=== PATIENT | male | born 1990 | race Caucasian/White ===

== ENCOUNTER 2019-03-12 16:33 | Emergency (ER) | payer SELFPAY ==
--- NOTE | 2019-03-12 16:43 | UC ---
Psychiatric Complaint HPI - HPI Summary HPI Summary: On Thu has lost 3 hrs of his memory where he can't recall what happened. He was at work and woke up behind work in alley. denies any head injuries. he does not remember if his co workers said anything. He has since been home and drinking less alcohol, usually has 5 a night. increased anxiety and feeling of doom . also threw up once today. denies drug use. - History Of Current Complaint Chief Complaint: UCAlteredMentalStatus Stated Complaint: ANXIOUS Time Seen by Provider: 03/12/19 16:42 Hx Obtained From: Patient Onset/Duration: Sudden Onset Character: Fearful, Anxious Aggravating Factor(s): Alcohol Use Alleviating Factor(s): Nothing Associated Signs And Symptoms: Confused - Allergies/Home Medications Allergies/Adverse Reactions: Allergies Allergy/AdvReac Type Severity Reaction Status Date / Time No Known Allergies Allergy Verified 03/12/19 16:47 PMH/Surg Hx/FS Hx/Imm Hx Previously Healthy: Yes Psychological History: Anxiety - Surgical History Surgical History: Unable to Obtain/Confirm - Family History Known Family History: Positive: Other - RECTAL CANCER/MOTHER Review of Systems All Other Systems Reviewed And Are Negative: Yes Constitutional: Negative: Fever Respiratory: Positive: Negative Cardiovascular: Positive: Palpitations Gastrointestinal: Positive: Vomiting - x1 today. Negative: Abdominal Pain, Diarrhea, Nausea Genitourinary: Negative: Dysuria Neurological: Positive: Other - memory lapse. Negative: Headache Psychological: Positive: Anxious. Negative: Depressed Physical Exam Triage Information Reviewed: Yes Appearance: Well-Appearing Vital Signs Reviewed: Yes Respiratory Exam: Normal Cardiovascular Exam: Normal Neurological: Positive: Alert Psychological: Positive: Other: - visibly anxious/tremors/blinking tic Skin: Negative: Rashes Psych Complaint Course/Dx - Course Course Of Treatment: Pt. w/ untreated anxiety presenting with transient global amnesia approx 3 hrs 4 days ago at work. At approx 1 pm he was drinking a beer and that was his last snap shot of memory. Found himself behind his job site on the ground. He doens 't have anyother injuries. He cannot recall what happened and when he awoke he felt shaken and increased feeling of doom, anxiety. His co workers did not ask where he had been which is strange. His short term memory has also worsened. He came in today due to increased anxiety. he denies drug ingestion. UDS: pending. EKG:unremarkable. Glucose finger stick: nl. He does admit to having anxiety and having been on an SSRI in the past. He does drink 5 etoh a night but has since decreased a bit. My immediate concern is if pt. had his drink tampered w/. There is also a concern for cerebral issue for which he would need CT for. After consult w/ MD it was decided he would be better served going to ED for curiel eval, I offered ambulance. Pt. has declined and they will be driving over. He is stable but clearly anxious and we gave hydroxyzine for now. vitals have improved and no longer tachycardic upon discharge w/ pulse of 77. BP remained elevated. - Differential Dx/Diagnosis Differential Diagnosis/HQI/PQRI: Acute Psychosis, Drug Overdose/Unintentional Provider Diagnosis: Tachycardia, Memory loss, Anxiety Discharge - Sign-Out/Discharge Documenting (check all that apply): Patient Departure All imaging exams completed and their final reports reviewed: No Studies - Discharge Plan Condition: Good Disposition: HOME Patient Education Materials: Transient Global Amnesia (ED) Referrals: Heidi Donato MD [Primary Care Provider] - Additional Instructions: It is unclear what has caused your symptoms but we cannot rule out something cerebral. At the Emergency Room a curiel investigation can be done including a Cat Scan. I offered an ambulance but you have decided to drive. - Billing Disposition and Condition Condition: GOOD Disposition: Home
[2019-03-12] MEDS ORDERED: hydrOXYzine HCL TAB* 25 MG PO ONE (17:37)
[2019-03-12 18:05] VITALS: BP 172/108
[2019-03-19 10:11] LABS: Adulterants Comment Normal; Creatinine, Urine 32.1 mg/dL; Fentanyl, Ur Not Detected ng/mL (Cutoff: 2); Hydrocodone, Ur Not Detected ng/mL (Cutoff: 25); Hydromorphone, Ur Not Detected ng/mL (Cutoff: 25); Morphine, Ur Not Detected ng/mL (Cutoff: 25); Norfentanyl, Ur Not Detected ng/mL (Cutoff: 2); Norhydrocodone, Ur Not Detected ng/mL (Cutoff: 25); Noroxycodone, Ur Not Detected ng/mL (Cutoff: 25); Oxycodone, Ur Not Detected ng/mL (Cutoff: 25); Specific Gravity 1.002; Tramadol, Ur Not Detected ng/mL (Cutoff: 25); Urine Barbiturates Negative; Urine Benzodiazepines Negative; Urine Cocaine Negative; Urine Phencyclidine Negative ng/mL (Cutoff: 25); Urine Tetrahydrocannabinol Negative ng/mL (Cutoff: 50)
== END 2019-03-12 18:03 | disposition home or self-care (01) ==
LOC: UCEAST 16:33
DX: R41.3 Other amnesia (principal); F41.9 Anxiety disorder, unspecified; R00.0 Tachycardia, unspecified
CPT/HCPCS: 80307; 80364; 93005; 99212; A9270-GY; G0463; G0480

== ENCOUNTER 2019-03-12 18:23 | Inpatient (IN) | payer SELFPAY ==
--- NOTE | 2019-03-12 19:10 | ED ---
Psychiatric Complaint - HPI Summary HPI Summary: This patient is a 28 year old M with a hx of anxiety presenting to ED with a chief complaint of tachycardia, amnesia, and anxiety since three days ago. Patient was sent here from [facility] where he received hydroxyzine for anxiety. Three days ago, patient was working and had an episode of amnesia. He states woke up in an alley 50 yards from his work and has been feeling anxious and exhausted ever since. Patient does not remember how he got to the alley. He reports sleeping well in the past couple days. Patient does not take medication for anxiety. Patient drinks alcohol every day, but only decreased his alcohol intake after the episode (drinks 6 drinks per day, now about 3 per day) No hx withdrawal seizures. Last EtOH today. He has a history of SI, but was not hospitalized in past. Patient reports recent SI in the past few days. Patient reports diaphoresis, intermittent heart-racing. Also had emesis x1 today. - History Of Current Complaint Chief Complaint: EDGeneral Time Seen by Provider: 03/12/19 18:53 Hx Obtained From: Patient Onset/Duration: Sudden Onset - Since blacking out, Lasting Days - 3 days, Still Present Timing: Constant Severity Initially: Moderate Severity Currently: Moderate Character: Anxious Aggravating Factor(s): Nothing Alleviating Factor(s): Nothing Related History: Positive For: Prior Psychiatric Issues Has Suicidal: Reports: Thoughts - Allergies/Home Medications Allergies/Adverse Reactions: Allergies Allergy/AdvReac Type Severity Reaction Status Date / Time No Known Allergies Allergy Verified 03/12/19 16:47 PMH/Surg Hx/FS Hx/Imm Hx Endocrine/Hematology History: Reports: Hx Thyroid Disease Sensory History: Denies: Hx Legally Blind, Hx Deafness Opthamlomology History: Denies: Hx Legally Blind EENT History: Denies: Hx Deafness Psychiatric History: Reports: Hx Anxiety - Surgical History Surgery Procedure, Year, and Place: denies Infectious Disease History: No Infectious Disease History: Denies: Traveled Outside the [place] in Last 30 Days - Family History Known Family History: Positive: Other - RECTAL CANCER/MOTHER, depression, bipolar - Social History Alcohol Use: Daily Alcohol Amount: 5 drinks per night Hx Substance Use: No Substance Use Type: Reports: None Hx Tobacco Use: Yes Smoking Status (MU): Former Smoker Review of Systems Constitutional: Other - Shaking Positive: Skin Diaphoresis Cardiovascular: Other - Heart racing Positive: Vomiting Neurological: Other - Confusion, amnesia Positive: Anxious All Other Systems Reviewed And Are Negative: Yes Physical Exam - Summary Physical Exam Summary: Constitutional: Well-developed, Well-nourished, Alert. (-) Distressed Skin: Warm, Dry HENT: Normocephalic; Atraumatic Eyes: Conjunctiva normal Neck: Musculoskeletal ROM normal neck. (-) JVD, (-) Stridor, (-) Nuchal rigidity Cardio: Rhythm regular, rate normal, Heart sounds normal; Intact distal pulses; Radial pulses are 2+ and symmetric. (-) Murmur Pulmonary/Chest wall: Effort normal. (-) Respiratory distress, (-) Wheezes, (-) Rales Abd: Soft, (-) tenderness, (-) Distension, (-) Guarding, (-) Rebound Musculoskeletal: (-) Edema Lymph: (-) Cervical adenopathy Neuro: Alert, Oriented x3 Psych: anxious, pressured speech GCS: 15 Triage Information Reviewed: Yes Vital Signs On Initial Exam: Initial Vitals Temp Pulse Resp BP Pulse Ox 99.1 F 86 16 178/104 97 03/12/19 18:27 03/12/19 18:27 03/12/19 18:27 03/12/19 18:27 03/12/19 18:27 Vital Signs Reviewed: Yes Diagnostics - Vital Signs Vital Signs Temp Pulse Resp BP Pulse Ox 03/12/19 18:27 99.1 F 86 16 178/104 97 - Laboratory Result Diagrams: 03/12/19 19:09 03/12/19 19:09 Lab Statement: Any lab studies that have been ordered have been reviewed, and results considered in the medical decision making process. - Radiology CXR Radiology Interpretation Completed By: ED Physician Summary of Radiographic Findings: No acute cardiopulmonary processes, pending official radiology report. - CT Brain CT Interpretation Completed By: Radiologist Summary of CT Findings: No acute intracranial abnormality. Dr. Wheeler has reviewed this radiology report. - EKG 1923 Cardiac Rate: NL - 71 BPM EKG Rhythm: Sinus Rhythm Summary of EKG Findings: NSR at 71 BPM, T wave inversion in lead III. Re-Evaluation - Re-Evaluation First Eval Re-Evaluation Time: 20:38 Comment: Labs unremarkable, head CT unremarkable. Medically cleared for MHE. Course/Dx - Course Course Of Treatment: 28-year-old male with a history of hyperthyroidism and anxiety presents with multiple complaints. Physical examination anxious and hyperverbal male no acute distress. Will check labs including TSH to rule out hyperthyroidism, head CT given reported amnesia, and have mental health evaluate him for concern for manic behavior and SI - Differential Dx/Clinical Impression Differential Diagnosis/HQI/PQRI: Positive: Anxiety, Suicidal Ideation Provider Diagnosis: Anxiety, Suicidal ideation, Palpitations - Physician Notifications Patient Is Medically Stable For: Psych Evaluation Discharge - Sign-Out/Discharge Documenting (check all that apply): Sign-Out Patient Signing out patient TO: Diana Isabel - pending MHE clearance - Discharge Plan Referrals: Heidi Donato MD [Primary Care Provider] - Additional Instructions: You were seen in the emergency department for suicidal ideation and anxiety. Your labs showed slightly elevated liver enzymes. Please follow up with your doctor regarding this If any studies were not completed at the time of discharge you will be called with the relevant results. Please follow up with your primary care doctor in next 2-3 days and return to emergency department for worsening or concerning symptoms. - Attestation Statements Document Initiated by Nadya: Yes Documenting Scribe: Raul Brown Provider For Whom Nadya is Documenting (Include Credential): Alvaro Wheeler MD Scribe Attestation: I, Raul Brown, scribed for Alvaro Wheeler MD on 03/12/19 at 2202. Scribe Documentation Reviewed: Yes Provider Attestation: The documentation as recorded by the Raul alexis accurately reflects the service I personally performed and the decisions made by me, Alvaro Wheeler MD Status of Scribe Document: Viewed
[2019-03-12 19:20] LABS: ABS Eosinophils 0.1 10^3/ul (0-0.6); ABS Lymphocytes 0.9 10^3/ul (1.0-4.8); ABS Monocytes 0.4 10^3/ul (0-0.8); ABS Neutrophils 4.2 10^3/ul (1.5-7.7); Eosinophil % 1.2 %; Hematocrit 45 % (42-52); Hemoglobin 16.2 g/dL (14.0-18.0); Lymphocyte % 16.5 %; Mean Corpuscular HGB Conc 36 g/dL (31-36); Mean Corpuscular Hemoglobin 34 pg (27-31); Mean Corpuscular Volume 94 fL (80-94); Mean Platelet Volume 6.8 fL (7.4-10.4); Platelet Count 188 10^3/uL (150-450); Red Blood Count 4.74 10^6 /uL (4.18-5.48); Red Cell Distribution Width 12 % (10-15); White Blood Count 5.6 10^3/uL (3.5-10.8)
[2019-03-12 19:34] LABS: ALT 168 U/L (7-52); AST 129 U/L (13-39); Albumin 4.8 g/dL (3.2-5.2); Albumin/Globulin Ratio 1.6 (1-3); Alkaline Phosphatase 87 U/L (34-104); Anion Gap 12 mmol/L (2-11); Blood Urea Nitrogen 7 mg/dL (6-24); CO2 Carbon Dioxide 25 mmol/L (22-32); Calcium 10.1 mg/dL (8.6-10.3); Chloride 101 mmol/L (101-111); EGFR African American 123.9 (>60); EGFR Non-African American 102.4 (>60); Glucose 91 mg/dL (70-100); Potassium 3.5 mmol/L (3.5-5.0); Sodium 138 mmol/L (135-145); Total Protein 7.8 g/dL (6.4-8.9)
[2019-03-12 19:51] LABS: Urine Appearance Clear; Urine Bacteria Absent (Absent); Urine Bilirubin Negative (Negative); Urine Blood Negative (Negative); Urine Color Straw; Urine Glucose Negative (Negative); Urine Ketones 1+ (Negative); Urine Nitrite Negative (Negative); Urine Protein Negative (Negative); Urine Red Blood Cell Trace(0-2/hpf) (Absent); Urine Specific Gravity 1.001 (1.010-1.030); Urine Urobilinogen Negative (Negative); Urine White Blood Cell Trace(0-5/hpf) (Absent)
[2019-03-12 20:09] LABS: Urine Benzodiazepine Screen None Detected (None Detect); Urine Opiates Screen None Detected (None Detect)
[2019-03-12 20:20] LABS: Acetaminophen < 15 mcg/mL; Alcohol < 10 mg/dL (<10); Salicylate < 2.50 mg/dL (<30)
[2019-03-12 20:35] LABS: TSH (Thyroid Stimulating Horm) 5.11 mcIU/mL (0.34-5.60)
[2019-03-12 20:37] LABS: Free T4 0.72 ng/dL (0.61-1.12)
[2019-03-12] MEDS ORDERED: ALPRAZolam TAB* 0.5 MG PO ONE (22:23)
[2019-03-12] MEDS ORDERED: hydrOXYzine HCL TAB* 25 MG PO ONE (22:34)
--- NOTE | 2019-03-12 23:41 | ED ---
Progress - Progress Note Progress Note: Receiving sign-out from Dr. Wheeler at shift change 2200 pending MHE. MHE diagnosed the patient with major depressive disorder and will admit the patient per Dr. Jeffers, Psychiatry. - Consult/PCP Time Called: 20:45 Re-Evaluation - Re-Evaluation First Eval Re-Evaluation Time: 20:38 Comment: Labs unremarkable, head CT unremarkable. Medically cleared for [facility]. Course/Dx - Course Course Of Treatment: Receiving sign-out from Dr. Wheeler at shift change 2200 pending MHE. MHE diagnosed the patient with major depressive disorder and will admit the patient per Dr. Jeffers, Psychiatry. - Diagnoses Provider Diagnoses: Major depressive disorder Discharge - Sign-Out/Discharge Documenting (check all that apply): Patient Departure - Admission, per [facility] - Discharge Plan [place] [place]: Heidi Donato MD [Primary Care Provider] - Additional Instructions: You were seen in the emergency department for suicidal ideation and anxiety. Your labs showed slightly elevated liver enzymes. Please follow up with your doctor regarding this If any studies were not completed at the time of discharge you will be called with the relevant results. Please follow up with your primary care doctor in next 2-3 days and return to emergency department for worsening or concerning symptoms. - Attestation Statements Document Initiated by Scribe: Yes Documenting Scribe: Joby Ruvalcaba Provider For Whom Nadya is Documenting (Include Credential): Diana Isabel MD Scribe Attestation: IJoby, scribed for Diana Isabel MD on 03/12/19 at 2340. Status of Scribe Document: Ready
[2019-03-13] MEDS ORDERED: LORazepam TAB(*) 1 MG PO ONE (00:13)
[2019-03-13] MEDS ORDERED: Al Hydrox/Mg Hydrox/Simet LIQ* 30 ML UDC PO PRN (01:23)
[2019-03-13] MEDS ORDERED: Acetaminophen TAB* 325 MG PO PRN (01:23)
[2019-03-13] MEDS ORDERED: Lorazepam PYXIS KEY PRN (01:26)
[2019-03-13] MEDS ORDERED: LORazepam IM 0-6 mg for WAM protocol IM SCH (02:00)
[2019-03-13] MEDS ORDERED: LORazepam PO 0-6 for WAM protocol PO SCH (02:00)
[2019-03-13] MEDS: Vitamin THERAPEUTIC TAB PO SCH (10:10)
[2019-03-13] MEDS ORDERED: hydrOXYzine HCL TAB* 50 MG PO PRN (12:48)
[2019-03-13 14:17] LABS: TSH (Thyroid Stimulating Horm) 5.74 mcIU/mL (0.34-5.60)
[2019-03-13] MEDS: lamoTRIgine TAB(*) 25 MG PO SCH (14:18)
[2019-03-13 14:20] LABS: HIV 4th Generation Negative (Negative)
[2019-03-13 14:21] LABS: Free T4 0.75 ng/dL (0.61-1.12)
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
[2019-03-13 14:58] LABS: Hepatitis C Antibody Negative (Negative)
[2019-03-14 08:24] LABS: HDL Cholesterol 85.5 mg/dL
[2019-03-14] MEDS: lamoTRIgine TAB(*) 25 MG PO SCH (09:05)
[2019-03-14] MEDS: Vitamin THERAPEUTIC TAB PO SCH (09:05)
[2019-03-14 11:16] VITALS: BP 142/86
--- NOTE | 2019-03-14 21:47 | DS ---
DISCHARGE SUMMARY: DATE OF ADMISSION: 03/12/19 DATE OF DISCHARGE: 03/14/19 DISCHARGE DIAGNOSES: Landers I: Bipolar disorder type 2, alcohol use disorder. Landers II: Deferred. CONDITION AT THE TIME OF DISCHARGE: The patient is denying suicidal ideations and he has been safe on all checks. His alcohol detoxification has been complete and he is no longer scoring on the WAM protocol. The patient has been adherent with all milieu expectations including groups and therapeutic activities. He has done well on our unit and is appropriately requesting discharge at this time. He understands that he has suffered some liver damage secondary to drinking and he understands that he must abstain from alcohol hereafter. He is willing to continue medications and to follow up with outpatient mental health treatment in the community following discharge. MENTAL STATUS EXAM AT THE TIME OF DISCHARGE: The patient is a young, short, slightly built, a feminine-appearing young white male who is dressed in a environment friendly landscape designer long sleeve shirt and jeans. He has brown hair. He is well groomed. He is clean, calm, cooperative, makes good eye contact, and is easy to establish a rapport with. Speech has a normal rate, tone, and volume. Mood is euthymic with full affect. Thought process is linear and goal-directed. Thought content is significant for his desire to be discharged from the hospital. He is denying suicidal or homicidal ideations. He denies auditory or visual hallucinations. Insight and judgment are fair given his willingness to receive care in the outpatient setting. Cognitively, he is awake and alert with what would appear to be an average intellect. DISCHARGE INSTRUCTIONS TO THE PATIENT: A. Medications: He is takin. Lamotrigine 25 mg p.o. daily. 2. He is also taking hydroxyzine 50 mg p.o. q.6 hours as a p.r.n. for anxiety. B. Diet is regular. C. Activities as tolerated. The patient is a nonsmoker. There are no laboratory or diagnostic studies pending at the time of discharge. D. Followup care: The patient will have his intake appointment on 03/16/19 at 10:45 a.m. at the [facility]. In addition , he has been set up for a primary care intake at the [facility] on 04/18/19 at noon with DrMarcia Tucker Substance abuse followup is nonapplicable. F. Disposition: The patient is being discharged to his home apartment. HOSPITAL COURSE: A. Reason for admission: The patient is a 28-year-old single bisexual male with a history of anxiety, depression, and alcohol abuse who arrived at the emergency room as a transfer from the [facility], where he had presented with increasing anxiety and stress following an episode, in which he had passed out at work. 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 He also indicated that he was suicidal without any specific plan. 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 He states that prior to leaving work at in the afternoon, he had drank a beer to relieve hangover. He has a fleeting memory of leaving the building but later woke up approximately half an hour after his shift ended to find himself in a back alley adjacent to a separate building owned by his employer. Upon regaining alertness, he was distressed and worried that perhaps someone had spiked his drink or abused him; however, he was uncertain of this. He went back and notified peers at his work and he was upset and inconsolable and was taken home. The patient subsequently has taken the next 3 days off of work, where he has been experiencing symptoms of anxiety, terror, racing heart rate and diaphoresis. During that time, he has decided to cut off his alcohol intake and he has been actively treated for alcohol withdrawal, having scored several times on the WAM protocol. I asked the patient about his stressors and he indicated that he has a conflicted relationship with his mother who is currently undergoing treatment for rectal cancer. He has had to move several times recently and has not yet unpacked his items in his current apartment despite living there for several weeks. He has also been asked to work extra shifts at the [employer] and feels occupationally overwhelmed. The patient endorses alcohol abuse drinking between 3 and 11 drinks per day. He is aware that he becomes cranky and has headaches if he does not drink; however, he denies alcohol withdrawal seizures or delirium tremens. Symptomatically, he was endorsing difficulty sleeping, some guilt, poor energy, and suicidal ideations, which have been on and off for the past 5 to 6 years. I asked him about psychotic symptoms and he stated that 10 years ago while he was still smoking pot, he experienced auditory hallucinations while being high but he states he has had no similar episodes since quitting cannabis. In terms of manic symptoms, he does state that he has significant mood swings, where he will go weeks to months being depressed and then have significant week long episodes of feeling up, in which he is more active, euphoric, having increased thought rate, decreased need for sleep, and indiscrete behaviors. He notes that these episodes are typically noticed by other people. B. Psychiatric treatment rendered: The patient was admitted to the adult behavioral health unit where he was placed on q.15-minute checks for his own safety. We also administered the [place] protocol for alcohol withdrawal and several times he scored requiring the use of as-needed oral lorazepam. His last lorazepam dose was required on 03/13/19 at 10:30 a.m. Thereafter, signs of alcohol withdrawal were diminished. We did notice on his acute labs that he has evidence of mild liver failure, which is directly attributable to alcohol abuse and the patient is strongly encouraged to abstain from any further alcohol usage. He was diagnosed with bipolar disorder and placed on a trial of lamotrigine 25 mg p.o. daily and alerted to the theoretical risks of significant rash, which he understands he must be alert too. We were able to hook him up with outpatient services at both the [facility] for psychiatric needs and for the [facility] for his primary care needs. He has been granted a prescription for hydroxyzine 50 mg on an as-needed basis for breakthrough anxiety. The patient's suicidal ideations resolved upon admission and he is deemed to be safe on all checks. At this time, he is requesting discharge stating that he does not have insurance to cover the bill and that he has to get back to work. He is feeling successfully detoxified and states that he is tolerating the lamotrigine well. He is very much interested and willing to follow up with outpatient behavioral and medical services. At this time, we see no further benefit to inpatient hospitalization and we are discharging him to outpatient care. [id number]/CPS #: [id number] IMANI
--- NOTE | 2019-03-21 13:10 | DS ---
DISCHARGE SUMMARY: ADDENDUM: CONDITION AT THE TIME OF DISCHARGE: The patient's condition at the time of discharge is improved. [id number]/CPS #: [id number]
== END 2019-03-14 14:30 | disposition home or self-care (01) | DRG 885 ==
LOC: ED 18:23 → BSU 23:18
PROVIDERS: ADMIT Psychiatry & Neurology Psychiatry; ATTEND Psychiatry & Neurology Psychiatry
PROC: HZ2ZZZZ Detoxification Services for Substance Abuse Treatment (ICD-10-PCS; principal; 2019-03-13)
DX: F31.81 Bipolar II disorder (principal); N17.9 Acute kidney failure, unspecified; R45.851 Suicidal ideations; F10.10 Alcohol abuse, uncomplicated; E05.90 Thyrotoxicosis, unspecified without thyrotoxic crisis or storm; F41.9 Anxiety disorder, unspecified; Z87.891 Personal history of nicotine dependence; Z80.0 Family history of malignant neoplasm of digestive organs; Z81.8 Family history of other mental and behavioral disorders
CPT/HCPCS: 36415; 70450; 71045; 80053; 80061; 80307; 80320; 80329; 81003; 81015; 83036; 84439; 84443; 84481; 84484; 85025; 86803; 87086; 87389; 93005; 99222; 99238; 99285; A9270-GY; G0480

== ENCOUNTER 2019-03-15 00:26 | Emergency (ER) | payer SELFPAY ==
[2019-03-15] MEDS ORDERED: cloNIDine TAB* 0.1 MG PO ONE (01:57)
[2019-03-15] MEDS ORDERED: Diazepam INJ (NF) 5 MG/ML 10 ML VIAL (50 MG TOTAL) IV ONE (01:57)
[2019-03-15] MEDS ORDERED: Diazepam INJ CARPUJECT* 5 MG/ML IV ONE (01:57)
--- NOTE | 2019-03-15 01:58 | ED ---
Psychiatric Complaint - HPI Summary HPI Summary: This pt is a 28 Y/O M presenting to [facility] with his and a CC of anxiety since this morning. 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 He reported that he also has amnesia. He stated that he took his last drink on 03/12/19. He also stated that he has heart palpitations occasionally throughout the day. He denies any SI and H. He stated that he took his BP medication that he was discharged with today. He denies any CP, SOB, abdominal pain, N/V, and headaches. - History Of Current Complaint Chief Complaint: EDGeneral Time Seen by Provider: 03/15/19 01:32 Hx Obtained From: Patient Onset/Duration: Sudden Onset, Lasting Hours, Still Present Timing: Constant Severity Initially: Moderate Severity Currently: Moderate Character: Anxious Aggravating Factor(s): Other - Pt states alcohol withdrawl Alleviating Factor(s): Nothing Associated Signs And Symptoms: Positive: Negative - CP, SOB, abdominal pain, N/ V, and headaches., Hallucinating Related History: Positive For: Prior Psychiatric Issues, Drug Abuse Counseling Has Suicidal: Denies: Thoughts, With A Plan Has Homicidal: Denies: Thoughts, With A Plan Recent Stressor(s): Pt recently stopped drinking - Allergies/Home Medications Allergies/Adverse Reactions: Allergies Allergy/AdvReac Type Severity Reaction Status Date / Time No Known Allergies Allergy Verified 03/15/19 01:02 Home Medications: Home Medications Propranolol HCl 10 mg PO DAILY 03/15/19 [History Confirmed 03/15/19] PMH/Surg Hx/FS Hx/Imm Hx Previously Healthy: Yes Endocrine/Hematology History: Reports: Hx Thyroid Disease - Pt states that he had an "over active thyroid, 6 years ago," now resolved Cardiovascular History: Reports: Hx Hypertension GI History: Reports: Hx Irritable Bowel - Pt relates a hx of chronic diahrrea Sensory History: Reports: Hx Contacts or Glasses - Pt uses contact lenses/ no glasses at this time Denies: Hx Legally Blind, Hx Deafness, Hx Hearing Aid Opthamlomology History: Reports: Hx Contacts or Glasses - Pt uses contact lenses / no glasses at this time Denies: Hx Legally Blind Neurological History: Reports: Hx Migraine Psychiatric History: Reports: Hx Anxiety, Hx Depression Denies: Hx Eating Disorder, Hx Community Mental Health Tx, Hx of Violent Episodes Against Others - Surgical History Surgical History: None Surgery Procedure, Year, and Place: denies - Immunization History Immunizations Up to Date: Yes Infectious Disease History: No Infectious Disease History: Denies: Traveled Outside the [place] in Last 30 Days - Family History Known Family History: Positive: Other - RECTAL CANCER/MOTHER, depression, bipolar - Social History Occupation: Employed Full-time Lives: Alone Alcohol Use: Daily Alcohol Amount: last drink 03/12/2019 Hx Substance Use: No Substance Use Type: Reports: None Hx Tobacco Use: Yes Smoking Status (MU): Former Smoker Review of Systems Negative: Chest Pain Negative: Shortness Of Breath Negative: Abdominal Pain, Vomiting, Nausea Negative: Headache Positive: Anxious All Other Systems Reviewed And Are Negative: Yes Physical Exam - Summary Physical Exam Summary: VITAL SIGNS: Reviewed. GENERAL: Patient is a well-developed and nourished male who is lying comfortable in the stretcher. Patient is not in any acute respiratory distress. HEAD AND FACE: No signs of trauma. No ecchymosis, hematomas or skull depressions. No sinus tenderness. EYES: PERRLA, EOMI x 2, No injected conjunctiva, no nystagmus. EARS: Hearing grossly intact. Ear canals and tympanic membranes are within normal limits. MOUTH: Oropharynx within normal limits. NECK: Supple, trachea is midline, no adenopathy, no JVD, no carotid bruit, no c- spine tenderness, neck with full ROM CHEST: Symmetric, no tenderness at palpation LUNGS: Clear to auscultation bilaterally. No wheezing or crackles. CVS: Regular rate and rhythm, S1 and S2 present, no murmurs or gallops appreciated. ABDOMEN: Soft, non-tender. No signs of distention. No rebound no guarding, and no masses palpated. Bowel sounds are normal. EXTREMITIES: FROM in all major joints, no edema, no cyanosis or clubbing. NEURO: Alert and oriented x 3. No acute neurological deficits. Speech is normal and follows commands. SKIN: Dry and warm PSYCH: anxious, somewhat shaky Triage Information Reviewed: Yes Vital Signs On Initial Exam: Initial Vitals Temp Pulse Resp BP Pulse Ox 98.0 F 70 16 170/119 100 03/15/19 00:28 03/15/19 00:28 03/15/19 00:28 03/15/19 00:28 03/15/19 00:28 Vital Signs Reviewed: Yes Diagnostics - Vital Signs Vital Signs Temp Pulse Resp BP Pulse Ox 03/15/19 00:28 98.0 F 70 16 170/119 100 - Laboratory Lab Statement: Any lab studies that have been ordered have been reviewed, and results considered in the medical decision making process. Course/Dx - Course Course Of Treatment: This pt is a 28 Y/O M presenting to [facility] with his and a CC of anxiety since this morning. 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 His PE found him to be anxious and somewhat shaky. He was given anti-anxiety medications and was able to calm down. He will be discharged home with a Dx of anxiety. - Differential Dx/Clinical Impression Provider Diagnosis: Anxiety Discharge - Sign-Out/Discharge Documenting (check all that apply): Patient Departure - discharge Patient Received Moderate/Deep Sedation with Procedure: No - Discharge Plan Condition: Stable Disposition: HOME Patient Education Materials: Anxiety (ED) Referrals: [facility] [Outside] - 2 Days Additional Instructions: PLEASE RETURN TO THE ED IMMEDIATELY FOR WORSENING OR CONCERNING SYMPTOMS AND FOLLOW UP WITH [facility] IN 1-3 DAYS. - Attestation Statements Document Initiated by Scribe: Yes Documenting Scribe: Dhaval Ac Provider For Whom Scribe is Documenting (Include Credential): Diana Isabel MD Scribe Attestation: Dhaval Larkin, scribed for Diana Isabel MD on 03/15/19 at 0414. Status of Scribe Document: Ready
[2019-03-15 04:50] VITALS: BP 143/90
== END 2019-03-15 05:03 | disposition home or self-care (01) ==
LOC: ED 00:26
DX: F41.9 Anxiety disorder, unspecified (principal); E07.9 Disorder of thyroid, unspecified; I10 Essential (primary) hypertension; F32.9 Major depressive disorder, single episode, unspecified; K58.0 Irritable bowel syndrome with diarrhea; Z87.891 Personal history of nicotine dependence; Z79.899 Other long term (current) drug therapy
CPT/HCPCS: 96374; 96376; 99283; A9270-GY; J3360